=== PATIENT | male | born 1950 | race Asian ===

== ENCOUNTER 2021-01-14 18:45 | Emergency (ER) | payer OTHER, BC, MEDICARE ==
[2021-01-14 19:48] LABS: #Eosinphils 0.1 10x3/uL (0.0-0.5); #Monocytes 0.6 10x3/uL (0.0-1.1); #Neutrophils 5.5 10x3/uL (1.5-8.4); %Basophils 0.3 % (0.0-2.0); %Eosinophils 1.3 % (0.0-6.0); %Lymphocytes 17.7 % (18.0-47.0); %Monocytes 7.6 % (0.0-10.0); %Neutrophils 72.7 % (40.0-75.0); Hemoglobin 14.4 g/dL (13.5-17.5); Mean Corpuscular HGB CONC 33.8 g/dL (32.0-36.0); Mean Corpuscular Hemoglobin 31.2 pg (27.0-33.0); Mean Corpuscular Volume 92.2 fl (81.2-95.1); Mean Platelet Volume 10.6 fl (7.4-10.4); Platelet Count 92 10x3/uL (150-450); RBC Distribution Width 13.7 % (11.5-14.5); Red Blood Cell (RBC) Count 4.62 10x6/uL (4.32-5.72); White Blood Cell (WBC) Count 7.6 10x3/uL (3.5-10.5)
[2021-01-14 19:54] LABS: ALT (SGPT) 11 U/L (8-55); AST (SGOT) 14 U/L (5-34); Albumin 3.6 g/dL (3.4-4.8); Alkaline Phosphatase 52 U/L (40-110); Anion Gap 13 mmol/L (10-20); BUN (Urea Nitrogen) 11 mg/dL (8.4-25.7); Bilirubin, Total 1.1 mg/dL (0.2-1.2); Calc. Creatinine Clearance 0 mL/min (70-130); Calcium 8.8 mg/dL (7.8-10.44); Carbon Dioxide 23 mmol/L (23-31); Chloride 108 mmol/L (98-107); Globulin 2.4 g/dL (2.4-3.5); Glucose 120 mg/dL (83-110); Potassium 4.5 mmol/L (3.5-5.1); Sodium 139 mmol/L (136-145)
[2021-01-14 20:09] LABS: Platelet Morphology Comment Appears Decreased
== END 2021-01-14 21:06 | disposition home or self-care (01) ==
LOC: CSHERS 18:45
DX: S20.211A Contusion of right front wall of thorax, initial encounter (principal); V43.52XA Car driver injured in collision with other type car in traffic accident, initial encounter
CPT/HCPCS: 71260; 80053; 84484; 85025; 93005; 93010

== ENCOUNTER 2025-03-03 08:46 | Outpatient (CLI) | payer BC ==
[2025-03-03 09:44] LABS: Estimated GFR - POC 78.0
[2025-03-03] MEDS ORDERED: Iopamidol 300 61% 100 ML VIAL FS ONE (13:17)
== END 2025-03-03 08:47 | disposition home or self-care (01) ==
LOC: CSHCT 08:46
PROVIDERS: ATTEND Internal Medicine Gastroenterology
DX: R93.2 Abnormal findings on diagnostic imaging of liver and biliary tract (principal); K83.8 Other specified diseases of biliary tract; K57.10 Diverticulosis of small intestine without perforation or abscess without bleeding; K76.9 Liver disease, unspecified
CPT/HCPCS: 36415; 74160; 82565; Q9967

== ENCOUNTER 2025-04-22 13:39 | Outpatient (CLI) | payer BC | END 2025-04-22 13:40 | disposition home or self-care (01) | LOC: CSHRAD 13:39 | DX: R31.0 Gross hematuria (principal) | CPT/HCPCS: 74018 ==

== ENCOUNTER 2025-07-02 07:23 | Outpatient (CLI) | payer BC ==
[2025-07-02 08:48] LABS: Estimated GFR - POC 92.0
[2025-07-02] MEDS ORDERED: Iopamidol 300 61% 100 ML VIAL FS ONE (14:12)
== END 2025-07-02 07:24 | disposition home or self-care (01) ==
LOC: CSHCT 07:23
PROVIDERS: ATTEND Urology
DX: R31.29 Other microscopic hematuria (principal); N32.89 Other specified disorders of bladder; K44.9 Diaphragmatic hernia without obstruction or gangrene
CPT/HCPCS: 36415; 74178; 82565; Q9967